=== PATIENT | male | born 1985 | race Caucasian/White ===

== ENCOUNTER 2024-08-29 20:48 | Emergency (ER) | payer OTHER, SELFPAY ==
[2024-08-29 20:53] VITALS: BP 131/85; PULSE 86; TEMP 36.5; O2SAT 98; BMI 36.9
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
[2024-08-29] MEDS: METHYLPREDNISOLONE SOD SUCC PF 125 MG/2 ML VIAL IM (21:56)
== END 2024-08-29 22:05 | disposition home or self-care (01) ==
PROVIDERS: Emergency Provider Emergency Medicine
DX: Z04.1 Encounter for examination and observation following transport accident (principal); J40 Bronchitis, not specified as acute or chronic
CPT/HCPCS: 96372; 99284; J2919